=== PATIENT | female | born 1985 | race Caucasian/White ===

== ENCOUNTER 2019-12-30 16:59 | Emergency (ER) | payer MEDICAID, SELFPAY ==
[~2019-12-30] VITALS: Ht 162.6 cm; Wt 113.4 kg
[2019-12-30 17:02] VITALS: Ht 162.6 cm; Wt 113.4 kg
[2019-12-30 18:23] VITALS: BP 143/89
== END 2019-12-30 18:23 | disposition home or self-care (01) ==
LOC: ED 16:59
DX: R51 Headache (principal); M79.10 Myalgia, unspecified site; R42 Dizziness and giddiness; Z90.49 Acquired absence of other specified parts of digestive tract; Z98.890 Other specified postprocedural states; Z20.828 Contact with and (suspected) exposure to other viral communicable diseases
CPT/HCPCS: Q0162; U0003-CS